=== PATIENT | female | born 1995 | race Caucasian/White ===

== ENCOUNTER 2023-04-16 21:39 | Emergency (ER) | payer OTHER, SELFPAY ==
[2023-04-16 21:40] VITALS: BP 140/100; PULSE 98; RESP 20; TEMP 36.8; O2SAT 100
--- NOTE | 2023-04-16 21:53 | ED.GENADULT ---
HPI - General Adult General Chief complaint: Unspecified Stated complaint: Sinus Infection Time Seen by Provider: 04/16/23 21:46 Source: patient Mode of arrival: ambulatory Limitations: no limitations History of Present Illness HPI narrative: this is a 27-year-old female that presents with some sinus congestion frontal and maxillary sinus pressure bilateral ear pressure with postnasal drip, there is no shortness of breath no fever chills no nausea vomiting symptoms have been going on for last week or so. Onset (ago): week(s) Location: head Related Data Allergies Allergy/AdvReac Type Severity Reaction Status Date / Time No Known Allergies Allergy Verified 04/16/23 21:42 Review of Systems Review of Systems: All systems reviewed & are unremarkable except as noted in HPI and below PMFSH Past Medical History Medical History Patient denies medical problems Exam Const: General: cooperative, healthy appearing, comfortable, no acute distress and well developed HENMT: Head: normal to inspection Other: frontal and maxillary sinus tenderness with palpation with a postnasal drip bilateral ear dullness and turbinates swollen and inflamed bilaterally Chest: Chest palpation & inspection: normal inspection of the chest Resp: Effort & Inspection: normal respiratory effort and able to speak in complete sentences Auscultation: clear to auscultation bilaterally Cardio: Jugular venous distension: no JVD Palpation: normal PMI Rate: regular rate Rhythm: regular rhythm Skin: General skin exam: normal color and no rashes or lesions noted Neuro: General: oriented to person, oriented to place and oriented to time Psych: Appearance: grossly normal Mental Status: mental status grossly normal Course Course Emergency Course: patient received a dose of IM ceftriaxone 1g and a dose of 80mg Depo-Medrol IM with moderate symptom improved. Vital Signs Vital signs: Vital Signs Temperature 36.8 C 04/16/23 21:40 Pulse Rate 98 04/16/23 21:40 Respiratory Rate 20 04/16/23 21:40 Blood Pressure 140/100 H 04/16/23 21:40 Pulse Oximetry 100 04/16/23 21:40 Oxygen Delivery Room Air 04/16/23 21:40 Temperature 36.8 C 04/16/23 21:40 Pulse Rate 98 04/16/23 21:40 Respiratory Rate 20 04/16/23 21:40 Blood Pressure 140/100 H 04/16/23 21:40 Pulse Oximetry 100 04/16/23 21:40 Oxygen Delivery Room Air 04/16/23 21:40 Medical Decision Making Vital Signs Vital Signs: Vital Signs Temperature 36.8 C 04/16/23 21:40 Pulse Rate 98 04/16/23 21:40 Respiratory Rate 20 04/16/23 21:40 Blood Pressure 140/100 H 04/16/23 21:40 Pulse Oximetry 100 04/16/23 21:40 Oxygen Delivery Room Air 04/16/23 21:40 Temperature 36.8 C 04/16/23 21:40 Pulse Rate 98 04/16/23 21:40 Respiratory Rate 20 04/16/23 21:40 Blood Pressure 140/100 H 04/16/23 21:40 Pulse Oximetry 100 04/16/23 21:40 Oxygen Delivery Room Air 04/16/23 21:40 Critical Care Time Critical Care Time Critical Care Time: No Discharge Plan Discharge Clinical Impression: Sinusitis Qualifiers: Sinusitis location: frontal Chronicity: acute Recurrence: non-recurrent Qualified Code(s): J01.10 - Acute frontal sinusitis, unspecified Patient Disposition: Home, Self-Care Condition: Stable Instructions: Antibiotic Form, Sinusitis (ED) Additional Instructions: take medicine as prescribed and follow up with primary within 1 to 2 weeks further evaluation and treatment. Can also take Claritin [id number] daily for the next 2 weeks. Prescriptions: New azithromycin [Zithromax Z-Sandoval] 250 mg tablet See Rx Instructions .ROUTE .COMPLEX Qty: 6 0RF Rx Instructions: For 250 mg dose pack: take 500 mg today (day 1), then 250 mg for 4 days (days 2-5) methylprednisolone [Medrol (Sandoval)] 4 mg tablets,dose pack See Rx Instructions .ROUTE .COMPLEX Q
[2023-04-16] MEDS: methylPREDNISolone ACETATE 40 MG/ML VIAL 80 MG IM (21:58)
[2023-04-16] MEDS: cefTRIAXone 1 GM, LIDOCAINE HCL 1% LOCAL INJ 2.1 ML IM (21:58)
[2023-04-16 22:13] VITALS: BP 140/88; PULSE 87; RESP 18; O2SAT 99
== END 2023-04-16 22:15 | disposition home or self-care (01) ==
PROVIDERS: Emergency Provider Emergency Medicine
DX: J01.10 Acute frontal sinusitis, unspecified (principal)
CPT/HCPCS: 96372; 99284; J0696; J1030

== ENCOUNTER 2023-11-29 11:20 | Emergency (ER) | payer OTHER, SELFPAY ==
[2023-11-29 11:23] VITALS: BP 132/85; PULSE 100; RESP 17; TEMP 36.8; O2SAT 99
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
[2023-11-29] MEDS: KETOROLAC 30 MG/ML VIAL (*BKC) IV PUSH (11:47)
[2023-11-29] MEDS: TETANUS,DIPHTHERIA,AC PERTUSSIS ADULT 0.5 ML (ADACEL) IM (11:48)
[2023-11-29] MEDS: LINEZOLID 600 MG/300 ML 600 MG/300 ML SOLN 300 MG IVPB (12:08)
[2023-11-29 12:12] LABS: Basophils Absolute Auto 0.05 K/mm3 (0.00-0.10); Basophils Percent Auto 0.3 % (0.0-1.0); Eosinophils Absolute Auto 0.07 K/mm3 (0.02-0.50); Eosinophils Percent Auto 0.4 % (1.0-6.0); Hematocrit 37.3 % (35.0-49.0); Hemoglobin 11.7 g/dL (12.0-15.0); Immature Granulocyte Absolute 0.11 K/mm3 (0.00-0.00); Immature Granulocyte Percent A 0.6 % (0.0-0.0); Lymphocytes Absolute Auto 2.05 K/mm3 (1.10-4.50); Lymphocytes Percent Auto 11.5 % (18.0-42.0); Mean Corpuscular HGB Conc 31.4 g/dL (32.0-36.0); Mean Corpuscular Hemoglobin 25.6 pg (27.0-31.0); Mean Corpuscular Volume 81.6 fL (78.0-102.0); Monocytes Absolute Auto 1.77 K/mm3 (0.10-0.90); Monocytes Percent Auto 9.9 % (2.0-11.0); Neutrophils Absolute Auto 13.8 K/mm3 (1.7-7.2); Neutrophils Percent Auto 77.3 % (50.0-70.0); Platelet Count Result 286 K/mm3 (150-420); Red Blood Count 4.57 M/mm3 (4.20-5.40); Red Cell Distribution Width 14.5 % (11.6-14.4); White Blood Count 17.8 K/mm3 (4.8-10.8)
[2023-11-29 12:25] LABS: Alanine Aminotransferase 28 U/L (14-59); Albumin Level 3.9 g/dL (3.4-5.0); Alkaline Phosphatase 59 U/L (46-116); Anion Gap 10 mmol/L (8-16); Aspartate Amino Transferase 17 U/L (15-37); Bilirubin,Total 0.7 mg/dL (0.00-1.00); Blood Urea Nitrogen 11 mg/dL (7-18); Calcium 8.8 mg/dL (8.5-10.1); Carbon Dioxide 27 mmol/L (21-32); Chloride 98 mmol/L (98-108); Estimated Glomerular Filt Rate > 60; Glucose 94 mg/dL (70-99); Osmolality Calculated 279 mOsm/kg (285-295); Potassium 3.8 mmol/L (3.5-5.1); Sodium 135 mmol/L (136-145); Total Protein 7.5 g/dL (6.4-8.2)
[2023-11-29 12:30] VITALS: BP 115/91; PULSE 79; RESP 17; O2SAT 98
[2023-11-29 12:30] LABS: Lactic Acid Reflex 0.7 mmol/L (0.4-2.0)
[2023-11-29 13:00] VITALS: BP 117/93; PULSE 79; RESP 17; O2SAT 97
--- NOTE | 2023-11-29 13:00 | PC.NURSE ---
Patient refuses admission due to family issues and child welfare caseworker, patient will finish IV abx and leave AMA, ERP is aware of situation. ERP has spoke with patient and she understands the severity of infection and educated on when to return to ED.
--- NOTE | 2023-11-29 13:20 | PC.NURSE ---
On 11/29/23, the student, Flor Galeas, provided care and completed [facility] documentation on this patient. I have reviewed the student's documentation and agree with the findings.
[2023-11-29 13:23] VITALS: BP 123/96; PULSE 84; RESP 17; TEMP 37.1; O2SAT 98
--- NOTE | 2023-12-01 13:28 | PC.NURSE ---
PRELIMINARY WOUND CULTURE RESULTS: GRAM STAIN RARE. WHITE BLOOD CELLS SEEN. MANY GRAM POSITIVE COCCI IN CHAINS. ISOLATE 1: HEAVY GROWTH OF GROUP A STREPTOCOCCUS ISOLATED. PER DR MADISON TO AWAIT C&S PRELIMINARY BLOOD CULTURES X2: NO GROWTH TO DATE. TO AWAIT FINAL RESULTS.
--- NOTE | 2023-12-01 14:53 | PC.NURSE ---
PT CALLS REPORTING SHE DID NOT GET HER ABX FILLED DUE TO COST. ERP HAS ORDERED KEFLEX 500MG PO QID X 10 DAYS. PT IS AWARE, RX SENT TO [facility].
--- NOTE | 2023-12-02 15:13 | PC.NURSE ---
final culture results reviewed with DR Gold and pt on antibiotics susceptible for Group A Strep
--- NOTE | 2023-12-05 13:25 | PC.NURSE ---
final blood cultures x2 reviewed. no growth after 5 days. no change in plan of care.
== END 2023-11-29 13:23 | disposition left against medical advice (07) ==
PROVIDERS: Emergency Provider Emergency Medicine
DX: L02.511 Cutaneous abscess of right hand (principal); B95.5 Unspecified streptococcus as the cause of diseases classified elsewhere; Z23 Encounter for immunization
CPT/HCPCS: 26010; 36415; 80053; 83605; 85025; 87040; 87070; 87147; 87205; 90471; 90715; 96365; 96375; 99284; J1885; J2020

== ENCOUNTER 2024-02-10 09:06 | Emergency (ER) | payer OTHER, SELFPAY ==
[2024-02-10 09:10] VITALS: BP 132/85; PULSE 93; RESP 12; TEMP 37.3; O2SAT 97
--- NOTE | 2024-02-10 09:30 | ED.PSYCH ---
HPI - Psych General Chief Complaint: Psychiatric Symptoms Stated Complaint: Panic attack Time Seen by Provider: 02/10/24 09:16 Related Data Allergies Allergy/AdvReac Type Severity Reaction Status Date / Time No Known Allergies Allergy Verified 02/10/24 09:20 [facility] Past Medical History Medical History Patient denies medical problems Social History Social History Substance use type: marijuana, crack/cocaine and opiates Exam Const: General: ill appearing Orientation/consciousness: patient oriented x3 Limitations: no limitations Other: 28-year-old female with a history of cocaine and fentanyl abuse was brought in by EMS for -- panic attack. Patient was shouting and crying. Patient has been using a lot of drugs over the past 1-2 months. According to her mother she had been using cocaine her of late has switched to fentanyl. The patient's was arrested this morning by Federal agents. The patient denies any fever or chills. Patient denies chest pain or shortness of breath no nausea/ vomiting /abdominal pain. HENMT: Head: normal to inspection Ears: external ears normal Face/Nose/Sinus: Normal external nose present Face and sinus: normal facial exam Mouth: Yes Normal oral and palatal mucosa present Throat: posterior oropharynx normal Eyes: Conjunctivae: conjunctivae normal Pupils: Equal, round and reactive pupils present EOM: EOMs intact bilaterally Direct Ophthalmoscopy: no photophobia Neck: Neck: normal visual inspection, no lymphadenopathy and no meningeal signs Chest: Chest palpation & inspection: normal inspection of the chest Resp: Effort & Inspection: normal respiratory effort Auscultation: clear to auscultation bilaterally Cardio: Rate: regular rate Rhythm: regular rhythm GI: GI Palp: Yes Soft to palpation Auscultation: normal bowel sounds Other: No tenderness/ rigidity /rebound : General: Yes no CVA tenderness Back/Spine/Pelvis: Back: no CVA tenderness Skin: General skin exam: normal color Rashes: no rashes Wounds: no wounds Neuro: General: patient oriented x3, moves all extremities, no meningeal signs, no focal motor deficits and CN's II-XI intact bilaterally Cranial nerves: Yes Nystagmus not present Speech: normal speech Gait exam (Neuro): Normal gait present Extrem: General: normal to inspection, no clubbing, cyanosis or edema and no pedal edema Psych: Other: patient is anxious. She is shouting and crying. Course Course Emergency Course: Panic attack-- give the patient Ativan 2 mg and IV fluids fentanyl and cocaine abuse Vital Signs Vital signs: Vital Signs Temperature 37.3 C 02/10/24 09:10 Pulse Rate 93 02/10/24 09:10 Respiratory Rate 12 02/10/24 09:10 Blood Pressure 132/85 02/10/24 09:10 Pulse Oximetry 97 02/10/24 09:10 Oxygen Delivery Room Air 02/10/24 09:10 Temperature 37.3 C 02/10/24 09:10 Pulse Rate 93 02/10/24 09:10 Respiratory Rate 12 02/10/24 09:10 Blood Pressure 132/85 02/10/24 09:10 Pulse Oximetry 97 02/10/24 09:10 Oxygen Delivery Room Air 02/10/24 09:10 MDM - Psych MDM Narrative Medical decision making narrative: panic attack cocaine/fentanyl abuse Differential Diagnosis Differential diagnosis: Likely bipolar disorder and drug-induced psychotic disorder Medical Records Attestation: I reviewed the patient's medical records. Lab Data Attestation: I reviewed the patient's lab results. 02/10/24 09:49 02/10/24 09:49 Labs: Lab Results 02/10/24 02/10/24 Range/Units 09:49 10:58 WBC 11.0 H (4.8-10.8) K/mm3 RBC 4.74 (4.20-5.40) M/mm3 Hgb 12.0 (12.0-15.0) g/dL Hct 38.3 (35.0-49.0) % MCV 80.8 (78.0-102.0) fL MCH 25.3 L (27.0-31.0) pg MCHC 31.3 L (32-36) g/dL RDW 15.9 H (11.6-14.4) % Plt Count
--- NOTE | 2024-02-10 09:36 | ECG_ITS ---
SEE SCANNED COPY FOR CONFIRMED REPORT MTDD
[2024-02-10] MEDS: LORazepam INJ (*CRX) 2 MG/ML VIAL IM (09:37)
[2024-02-10 09:53] LABS: Basophils Absolute Auto 0.03 K/mm3 (0.00-0.10); Basophils Percent Auto 0.3 % (0.0-1.0); Eosinophils Absolute Auto 0.04 K/mm3 (0.02-0.50); Eosinophils Percent Auto 0.4 % (1.0-6.0); Hematocrit 38.3 % (35.0-49.0); Immature Granulocyte Absolute 0.04 K/mm3 (0.00-0.00); Immature Granulocyte Percent A 0.4 % (0.0-0.0); Lymphocytes Absolute Auto 1.67 K/mm3 (1.10-4.50); Lymphocytes Percent Auto 15.3 % (18.0-42.0); Mean Corpuscular HGB Conc 31.3 g/dL (32-36); Mean Corpuscular Hemoglobin 25.3 pg (27.0-31.0); Mean Corpuscular Volume 80.8 fL (78.0-102.0); Mean Platelet Volume 10.4 fl (9.2-11.8); Monocytes Absolute Auto 0.65 K/mm3 (0.10-0.90); Monocytes Percent Auto 5.9 % (2.0-11.0); Neutrophils Absolute Auto 8.52 K/mm3 (1.70-7.20); Neutrophils Percent Auto 77.7 % (50.0-70.0); Platelet Count Result 290 K/mm3 (150-420); Red Blood Count 4.74 M/mm3 (4.20-5.40); Red Cell Distribution Width 15.9 % (11.6-14.4)
[2024-02-10] MEDS: LACTATED RINGERS 1,000 ML 999 ML IV CONT (10:10)
[2024-02-10 10:16] LABS: Alanine Aminotransferase 33 U/L (14-59); Alkaline Phosphatase 60 U/L (46-116); Anion Gap 7 mmol/L (4-12); Aspartate Amino Transferase 24 U/L (15-37); Bilirubin,Total 0.5 mg/dL (0.00-1.00); Blood Urea Nitrogen 15 mg/dL (7-18); Calcium 8.9 mg/dL (8.5-10.1); Carbon Dioxide 29 mmol/L (21-32); Chloride 102 mmol/L (98-108); Creatine Kinase 286 U/L (26-192); Estimated CRCL calculation 89 ml/min; Estimated Glomerular Filt Rate > 60; Glucose 95 mg/dL (70-99); Lactic Acid Reflex 0.9 mmol/L (0.4-2.0); Osmolality Calculated 286 mOsm/kg (285-295); Potassium 4.1 mmol/L (3.5-5.1); Sodium 138 mmol/L (136-145); Total Protein 7.4 g/dL (6.4-8.2); Troponin I < 4.0 ng/L (0.00-60.4)
[2024-02-10 11:08] LABS: Appearance Urine Clear (Clear); Bilirubin Urine Negative (Negative); Blood Urine Negative (Negative); Color Urine Light Yellow (Yellow); Glucose Urine UA Negative (Negative); Ketones Urine Trace (Negative); Leukocyte Esterase Ur Trace LEU/UL (Negative); Nitrate Urine Negative (Negative); Protein Urine Negative (Negative); Urobilinogen Urine 0.2 mg/dL (0.2-1.0)
[2024-02-10 11:12] LABS: Add Urine Microscopic? YES; RBC Urine None seen /hpf (0-2); Squamous Epithelial Cell Urine Moderate /hpf (Few); WBC Urine 0-3 /hpf (0-3)
[2024-02-10 11:13] LABS: Bacteria Urine 1+ /hpf; Mucus Urine Rare /lpf; Pregnancy On Board Control Positive; Urine Pregnancy Test Negative
[2024-02-10 11:17] LABS: Amphetamine Screen Urine Negative (Negative); Barbiturate Screen Urine Negative (Negative); Benzodiazepines Screen Urine Negative (Negative); Cannabinoid Screen Urine Positive (Negative); Cocaine Screen Urine Positive (Negative); Methadone Screen Urine Negative (Negative); Opiate Screen Urine Negative (Negative); Phencyclidine Screen Urine Negative (Negative)
[2024-02-10 12:35] VITALS: BP 109/74; PULSE 100; RESP 19; TEMP 36.5; O2SAT 98
== END 2024-02-10 12:35 | disposition home or self-care (01) ==
PROVIDERS: Emergency Provider Internal Medicine Critical Care Medicine
DX: F41.0 Panic disorder [episodic paroxysmal anxiety] (principal); F14.93 Cocaine use, unspecified with withdrawal
CPT/HCPCS: 36415; 80053; 80307; 81001; 81025; 82550; 83605; 84484; 85025; 93005; 96360; 96372; 99283; J2060; J7120